=== PATIENT | male | born 1980 | race Caucasian/White ===

== ENCOUNTER 2016-08-31 23:20 | Emergency (ER) | payer OTHER ==
[2016-08-31 23:39] VITALS: RESP 18
[2016-08-31] MEDS ORDERED: DIPH,PERTUS(ACELL)TETVAC-LF 0.5 ML VIAL IM ONE (23:53)
[2016-08-31] MEDS ORDERED: IBUPROFEN 800 MG TAB PO STA (23:53)
[2016-08-31] MEDS ORDERED: Acetaminophen-Codeine 300-30mg TAB PO STA (23:53)
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
[2016-09-01 02:00] VITALS: BP 156/92; PULSE 84; TEMP 98.9
== END 2016-09-01 00:30 | disposition home or self-care (01) ==
LOC: EC 23:20
DX: T22.122A Burn of first degree of left elbow, initial encounter (principal); F17.200 Nicotine dependence, unspecified, uncomplicated; Z23 Encounter for immunization; X19.XXXA Contact with other heat and hot substances, initial encounter; Y93.89 Activity, other specified
CPT/HCPCS: 16000; 90471; 90715; 99283